=== PATIENT | female | born 1990 | race Hispanic/Latino ===

== ENCOUNTER 2018-01-05 10:52 | Emergency (ER) | payer MEDICAID ==
[2018-01-05] MEDS ORDERED: Sodium Chloride 0.9% 1,000 ML IV ONE (11:48)
[2018-01-05 12:32] LABS: BASO % 0.3 % (0.0-2.0); EOS # 0.1 K/uL (0.0-0.7); EOS % 1.1 % (0.0-4.0); LYMPH # 2.4 K/uL (1.0-4.3); LYMPH % 35.4 % (20.0-40.0); MEAN CELL VOLUME 89.8 fL (81.0-99.0); MEAN CORPUSCULAR HGB CONC 34.5 g/dL (33.0-37.0); MEAN PLATELET VOLUME 8.7 fL (7.2-11.7); MONO # 0.4 K/uL (0.0-0.8); MONO % 6.2 % (0.0-10.0); NEUT # 3.8 K/uL (1.8-7.0); RBC 3.87 Mil/uL (3.80-5.20); RED CELL DISTRIBUTION WIDTH 13.2 % (11.5-14.5); WHITE BLOOD COUNT 6.7 K/uL (4.8-10.8)
[2018-01-05] MEDS ORDERED: Sodium Chloride 0.9% 1,000 ML ONE (12:33)
[2018-01-05 12:39] LABS: SQUAMOUS EPITHIAL 9 /hpf (0-5); URINE BACTERIA FEW (<OCC); URINE BILIRUBIN NEGATIVE (NEGATIVE); URINE BLOOD TRACE (NEGATIVE); URINE CLARITY Hazy (Clear); URINE COLOR Amber (YELLOW); URINE GLUCOSE (UA) NORMAL (Normal); URINE LEUKOCYTE ESTERASE 2+ Leu/uL (Negative); URINE PROTEIN 1+ mg/dL (NEGATIVE)
[2018-01-05 12:40] LABS: HCG,QUALITATIVE URINE POSITIVE (NEGATIVE)
[2018-01-05 12:42] LABS: ALB/GLOB RATIO 1.3 (1.0-2.1); ALBUMIN 3.8 g/dL (3.5-5.0); ALT/SGPT 20 U/L (9-52); AST/SGOT 18 U/L (14-36); BLOOD UREA NITROGEN 10 mg/dL (7-17); CALCIUM 9.3 mg/dl (8.6-10.4); GFR AFRICAN-AMERICAN > 60; GFR NON-AFRICAN AMERICAN > 60
--- NOTE | 2018-01-05 13:20 | US ---
PROCEDURE: Obstetrical ultrasound HISTORY: abdominal pain COMPARISON: Not available TECHNIQUE: Transabdominal FINDINGS: There is a single live intrauterine gestation in transverse lie. The heart rate is 146 beats per minute. A grossly normal quantity of amniotic fluid is visualized. A normal posterior placenta is identified. There is no evidence of placenta previa. However, the placental margin is approximately 2 cm from the internal cervical os consistent with low-lying placenta. The cervix is closed and measures 3.6 cm in length. biometry yields a gestational age of 14 weeks 5 days. The JACKI by ultrasound is 07/01/2018. Limited review of anatomy demonstrates fluid distending the stomach and urinary bladder. A four-chamber heart could not be adequately demonstrated at this early gestational age. There is no evidence of hydronephrosis. The anterior abdominal wall is intact. No gross abnormality of the spine is demonstrated. IMPRESSION: Single live intrauterine gestation of approximately 14 weeks 5 days gestational age. heart rate 146. Low-lying placenta without evidence of rahul placenta previa. Transverse lie. Normal amniotic fluid volume. No gross anatomic abnormality.
--- NOTE | 2018-01-05 13:42 | C.PDOC ---
History Of Present Illness 27 year old female, who is currently (), presents to the ED for evaluation of suprapubic abdominal pain, back pain, and lower abdominal "heaviness" which gradually developed since yesterday. Patient states her last menstrual period was on 09/24/17. She is receiving care and has had no complications during this . Patient denies fever, chills, recent illness, CP, SOB, dyspnea, diaphoresis, palpitation, nausea, vomiting, vaginal irritation/bleeding, or hematuria. Ambulate to ED for evaluation, not in any apparent distress. Time Seen by Provider: 01/05/18 11:44 Chief Complaint (Nursing): Abdominal Pain History Per: Patient History/Exam Limitations: no limitations Onset/Duration Of Symptoms: Hrs, Gradual Current Symptoms Are (Timing): Still Present Location Of Pain/Discomfort: Suprapubic Radiation Of Pain To:: None Quality Of Discomfort: "Pain" Associated Symptoms: Back Pain. denies: Fever, Chills, Nausea, Vomiting, Urinary Symptoms Additional History Per: Patient Abnormal Vaginal Bleeding: No Last Menstral Period: 09/24/2017 : 3 Past Medical History Reviewed: Historical Data, Nursing Documentation, Vital Signs Vital Signs: Last Vital Signs Temp 98.6 F 01/05/18 11:02 Pulse 79 01/05/18 11:02 Resp 18 01/05/18 11:02 BP 128/79 01/05/18 11:02 Pulse Ox 99 01/05/18 14:15 - Medical History PMH: No Chronic Diseases Surgical History: No Surg Hx Family History: States: Unknown Family Hx - Social History Hx Alcohol Use: No Hx Substance Use: No Review Of Systems Constitutional: Negative for: Fever, Chills Gastrointestinal: Positive for: Abdominal Pain (suprapubic), Other (lower abdominal "heavines"). Negative for: Nausea, Vomiting Genitourinary: Negative for: Hematuria, Vaginal Discharge, Vaginal Bleeding Musculoskeletal: Positive for: Back Pain Physical Exam - Physical Exam Appears: Well, Non-toxic, No Acute Distress Skin: Normal Color, Warm, Dry, No Rash Head: Normacephalic Eye(s): bilateral: PERRL Nose: No Flaring, No Discharge Oral Mucosa: Moist, No Drooling Throat: No Erythema, No Drooling Neck: Trachea Midline, Supple Cardiovascular: Rhythm Regular, No Murmur, No JVD Respiratory: No Decreased Breath Sounds, No Accessory Muscle Use, No Stridor, No Wheezing Gastrointestinal/Abdominal: Soft, Tenderness (mild suprapubic tenderness), No Distention, No Guarding, No Rebound, Other (Gravid) Back: No CVA Tenderness Extremity: Normal ROM, No Pedal Edema, No Swelling Neurological/Psych: Oriented x3, Normal Speech ED Course And Treatment - Laboratory Results Result Diagrams: 01/05/18 12:26 01/05/18 12:26 Lab Interpretation: No Acute Changes O2 Sat by Pulse Oximetry: 99 (on RA) Pulse Ox Interpretation: Normal - CT Scan/US Transvaginal US Other Rad Studies (CT/US): Radiology Report Reviewed CT/US Interpretation: FINDINGS: There is a single live intrauterine gestation in transverse lie. The heart rate is 146 beats per minute. A grossly normal quantity of amniotic fluid is visualized. A normal posterior placenta is identified. There is no evidence of placenta previa. However, the placental margin is approximately 2 cm from the internal cervical os consistent with low- lying placenta. The cervix is closed and measures 3.6 cm in length. biometry yields a gestational age of 14 weeks 5 days. The JACKI by ultrasound is 07/01/2018. Limited review of anatomy demonstrates fluid distending the stomach and urinary bladder. A four-chamber heart could not be adequately demonstrated at this early gestational age. There is no evidence of hydronephrosis. The anterior abdominal wall is intact. No gross abnormality of the spine is demonstrated. IMPRESSION: Single live intrauterine gestation of approximately 14 weeks 5 days gestational age. heart rate 146. Low-lying placenta without evidence of rahul placenta previa. Transverse lie. Normal amniotic fluid volume. No gross anatomic abnormality. Progress Note: Bloodwork, urinalysis, and ultrasound ordered and reviewed. Rocephin IVP and IV Fluids administered. Pt was OBS in ED for 2 hours and remained stable. On re-evaluation, pt is afebrile, hemodynamicaly stable. Non- toxic. Tolerate Po well in ED. Neck: SUpple, (-) JVD, (-) carotid bruits B/L. ENT: no acute findings. Lungs: CTA B/L, BS equal B/L. CVS: (+)S1S2, reg. Abd : Gravid, (-) guarding, (-) rebound. Back: (-) CVA tenderness. Blood work review- no acute abnormalities. UA results review and c/w UTI. Transvaginal US (+) single IUP, 14 wks5ds, FHR (+)146/min, no acute findings. Beta quant results review and c/w US findings. blood type- O positive. Pt has clinical findings c/w UTI in . Pt advised. ref. to F/u with PMD, OB in 2-3 days for re-eval. return if any worsening or new changes. Disposition Counseled Patient/Family Regarding: Studies Performed, Diagnosis, Need For Followup, Rx Given - Disposition [facility] Disposition: HOME/ ROUTINE Disposition Time: 13:10 Condition: STABLE Additional Instructions: Encourage fluids Take medication as prescribed "Pelvic rest" for 1 week, avoid sexual activity Follow up with PMD, OB In 2-3 days for re-evaluation. return to ED if any worsening or new changes. 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 - Scribe Statement The provider has reviewed the documentation as recorded by the Scribe (July Hermosillo) All medical record entries made by the Scribe were at my direction and personally dictated by me. I have reviewed the chart and agree that the record accurately reflects my personal performance of the history, physical exam, medical decision making, and the department course for this patient. I have also personally directed, reviewed, and agree with the discharge instructions and disposition.
[2018-01-05] MEDS ORDERED: cefTRIAXone IV 1 gm in Dextros 50 ML IVPB ONE ×2 (14:00→14:11)
[2018-01-05 14:53] VITALS: BP 104/67; PULSE 68; RESP 16; TEMP 97.8; O2SAT 100
== END 2018-01-05 14:50 | disposition home or self-care (01) ==
LOC: C.ER 10:52
DX: O23.42 Unspecified infection of urinary tract in pregnancy, second trimester (principal); Z3A.14 14 weeks gestation of pregnancy
CPT/HCPCS: 76815; 80053; 81001; 84702; 84703; 85025; 86850; 86900; 87086; 96361; 96365; 99284; J0696; J7030